=== PATIENT | male | born 1995 | race African-American/Black ===

== ENCOUNTER 2021-01-11 02:02 | Emergency (ER) | payer BC ==
[~2021-01-11] VITALS: Ht 182.9 cm; Wt 82.0 kg
[~2021-01-11 02:02] MED LIST: ALBUTEROL
[2021-01-11] MEDS ORDERED: NALOXONE HCL 0.4 MG/ML 1ML VIAL IM ONE (02:45)
[2021-01-11] MEDS ORDERED: NALO4SPR BOTHNSTRLS (03:19)
[2021-01-11 03:49] VITALS: BP 109/67
== END 2021-01-11 03:51 | disposition home or self-care (01) ==
LOC: ER 02:02
DX: F32.9 Major depressive disorder, single episode, unspecified (principal); T40.691A Poisoning by other narcotics, accidental (unintentional), initial encounter; Y92.89 Other specified places as the place of occurrence of the external cause; J45.909 Unspecified asthma, uncomplicated; F12.10 Cannabis abuse, uncomplicated
CPT/HCPCS: 96372; 99283; J2310